=== PATIENT | female | born 1985 | race African-American/Black ===

== ENCOUNTER 2021-07-04 08:01 | Emergency (ER) | payer OTHER ==
[~2021-07-04] VITALS: Ht 157.5 cm; Wt 71.7 kg
[2021-07-04] MEDS ORDERED: KETOROLAC TROMET5 M1 OP (08:12)
[2021-07-04] MEDS ORDERED: ZIANA GEL30 GM TP (08:12)
[2021-07-04] MEDS ORDERED: DECADRON4 MG PO (08:12)
[2021-07-04] MEDS ORDERED: IBU400 MG PO (08:13)
[2021-07-04] MEDS ORDERED: AMOX TR-K250 MG/5 M (08:13)
== END 2021-07-04 15:28 | disposition designated cancer center or children's hospital (05) ==
LOC: ER 08:01
DX: K12.2 Cellulitis and abscess of mouth (principal); M27.2 Inflammatory conditions of jaws

== ENCOUNTER 2022-01-25 12:25 | Outpatient (CLI) | payer OTHER ==
[~2022-01-25 12:25] MED LIST: AMOX TR-K250 MG/5 M; DECADRON4 MG PO; IBU400 MG PO; KETOROLAC TROMET5 M1 OP; ZIANA GEL30 GM TP
== END 2022-01-25 14:16 | disposition home or self-care (01) ==
LOC: PRENATAL 12:25
PROVIDERS: ATTEND Obstetrics & Gynecology Maternal & Fetal Medicine
DX: O35.0XX0 Maternal care for (suspected) central nervous system malformation in fetus, not applicable or unspecified (principal); O35.3XX0 Maternal care for (suspected) damage to fetus from viral disease in mother, not applicable or unspecified; O34.219 Maternal care for unspecified type scar from previous cesarean delivery; O99.210 Obesity complicating pregnancy, unspecified trimester; Z3A.20 20 weeks gestation of pregnancy

== ENCOUNTER 2022-05-24 07:00 | Inpatient (IN) | payer OTHER ==
[~2022-05-24] VITALS: Ht 165.1 cm; Wt 3.2 kg
[2022-05-24] MEDS ORDERED: PROFERRIN-FORT1 EACH PO (08:41)
[2022-05-24] MEDS ORDERED: PRENAT PO (08:41)
[2022-05-24] MEDS ORDERED: INFED50 MG/ML IJ (08:42)
[2022-05-30] MEDS ORDERED: PRENATAL + DHA1 EAC1 PO (13:04)
[2022-06-02] MEDS ORDERED: IBUPROFEN800 MG PO (10:21)
== END 2022-06-02 12:08 | disposition home or self-care (01) | DRG 785 ==
LOC: OB/GYN 05-30 07:00 → O/R 05-30 07:22 → OB/GYN 05-30 15:47
PROVIDERS: ADMIT Obstetrics & Gynecology; ATTEND Obstetrics & Gynecology
PROC: 0UB70ZZ Excision of Bilateral Fallopian Tubes, Open Approach (ICD-10-PCS; 2022-05-30)
PROC: 4A1HXCZ Monitoring of Products of Conception, Cardiac Rate, External Approach (ICD-10-PCS; 2022-05-30)
PROC: 10D00Z1 Extraction of Products of Conception, Low, Open Approach (ICD-10-PCS; principal; 2022-05-30 07:00)
DX: O34.211 Maternal care for low transverse scar from previous cesarean delivery (principal); Z3A.38 38 weeks gestation of pregnancy; Z30.2 Encounter for sterilization; Z20.822 Contact with and (suspected) exposure to COVID-19; Z37.0 Single live birth